=== PATIENT | male | born 1970 | race Two or more races ===

== ENCOUNTER 2017-12-03 10:26 | Inpatient (IN) | payer MEDICAID, MEDICARE ==
[~2017-12-03] VITALS: Ht 167.6 cm; Wt 89.0 kg
[2017-12-03 11:00] LABS: Basophils # (auto) 0 uL; Basophils % (auto) 0.3 % (0.0-2.0); Eosinophils # (auto) 0.1 uL; Eosinophils % (auto) 0.7 % (0.0-7.0); Hemoglobin 15.9 g/dL (13.5-17.5); Lymphocytes # (auto) 1.2 uL; Lymphocytes % (auto) 13.2 % (10.0-50.0); Mean Corpuscular Hemoglobin 32.4 pg (28.0-32.0); Mean Corpuscular Hgb Conc. 34.6 g/dL (32.0-36.0); Mean Corpuscular Volume 93.5 fL (80.0-100.0); Monocytes # (auto) 0.4 uL; Monocytes % (auto) 4.4 % (0.0-12.0); Neutrophils # (auto) 7.7 uL; Neutrophils % (auto) 81.4 % (37.0-80.0); Nucleated Red Blood Cells % 0.1 %; Platelet Count (auto) 246 10^3/uL (140-450); Red Blood Cells 4.92 10^6/uL (4.5-5.90); Red Cell Distribution Width 12.8 % (11.8-14.3); White Blood Cell 9.4 10^3/uL (4.4-10.8)
[2017-12-03] MEDS ORDERED: ASPirin 81 mg TAB PO ONE (11:30)
[2017-12-03] MEDS ORDERED: NITROGLYCERIN 0.4 MG SL TAB SL ONE (11:30)
[2017-12-03 11:34] LABS: Alanine Aminotransferase 356 U/L (16-61); Albumin 4.2 g/dL (3.4-5.0); Alkaline Phosphatase 81 U/L (45-117); Anion Gap 10 (5-15); Aspartate Aminotransferase 370 U/L (15-37); BUN/Creatinine Ratio 17.9; Bilirubin, Total 3.3 mg/dL (0.2-1.0); Blood Urea Nitrogen 17 mg/dL (7-18); Carbon Dioxide 23 mmol/L (21-32); Chloride 102 mmol/L (98-107); GFR African American 110 mL/min; GFR Non-African American 91 mL/min; Glucose 211 mg/dL (74-106); Potassium 4.4 mmol/L (3.5-5.1); Sodium 135 mmol/L (136-145); Total Protein 7.7 g/dL (6.4-8.2)
[2017-12-03] MEDS ORDERED: LIDOCAINE 2% (LOCAL ANESTH.) PF 5ml SDV ONE (11:37)
[2017-12-03] MEDS ORDERED: IOHEXOL 350 MG/ML 100ML IJ ONE (11:38)
[2017-12-03] MEDS ORDERED: ANGIOMAX 250 MG VIAL IV ONE (11:41)
[2017-12-03] MEDS ORDERED: SODIUM CHL 0.9% 0 ML ONE (11:42)
[2017-12-03] MEDS ORDERED: MIDAZOLAM HCL 1MG/1ML-2 ML VIAL ONE (11:42)
[2017-12-03] MEDS ORDERED: fentaNYL CITRATE 100 MCG/2 ML VL ONE (11:42)
[2017-12-03] MEDS ORDERED: ATROPINE SULF 1 MG/10ml SYR ONE (11:42)
[2017-12-03] MEDS ORDERED: EPINEPHrine HCL 1 MG/10 ML SYRG ONE (11:43)
[2017-12-03] MEDS ORDERED: HEPARIN 1,000 UNITS/ml 1ML VIAL IV ONE (11:45)
[2017-12-03] MEDS ORDERED: methylPREDNISolone SOD SUCC 125 MG/2 ML VL ONE (11:55)
[2017-12-03] MEDS ORDERED: diphenhdrAMINE HCL 50 MG/1 ML VL ONE (11:55)
[2017-12-03] MEDS ORDERED: ONDANSETRON HCL 4 MG/2 ML VIAL IV ONE (12:00)
[2017-12-03] MEDS ORDERED: FAMOTIDINE (10MG/ML) 2ML VL IV ONE (12:00)
[2017-12-03] MEDS ORDERED: ACETAMINOPHEN 500 MG TAB PO PRN (13:15)
[2017-12-03] MEDS ORDERED: MORPHINE SULF INJ 2 MG/ML SYRINGE 1ML IV PRN (13:15)
[2017-12-03] MEDS ORDERED: NITROGLYCERIN 0.4 MG SL TAB SL PRN (13:15)
[2017-12-03] MEDS ORDERED: ONDANSETRON HCL 4 MG/2 ML VIAL IV PRN (13:15)
[2017-12-03] MEDS ORDERED: DEXTROSE (50%) 50ML SYRG IV PRN (13:15)
[2017-12-03] MEDS ORDERED: OPTISON 3ml Vial for INJ IV ONE ×2 (13:23→13:45)
[2017-12-03 13:29] LABS: Urine Bacteria NONE SEEN /hpf (None Seen); Urine Blood Negative /uL (Negative); Urine Mucus FEW (None Seen); Urine Specific Gravity 1.024 (1.001-1.035); Urine WBC 1 /hpf (0 - 3)
[2017-12-03 13:52] LABS: Alcohol, Urine < 3.0 mg/dL (0-5); Amphetamine Screen, Urine NEGATIVE (NEGATIVE); Barbiturate Scree,Urine NEGATIVE (NEGATIVE); Benzodiazephine Screen, Urine NEGATIVE (NEGATIVE); Cannabinoid Screen, Urine NEGATIVE (NEGATIVE); Cocaine Screen, Urine NEGATIVE (NEGATIVE); Opiate Scree,Urine NEGATIVE (NEGATIVE); Phencyclidine Screen, Urine NEGATIVE (NEGATIVE)
[2017-12-03 16:24] LABS: Acetaminophen < 2.0 ug/mL (10-30)
[2017-12-03 16:58] LABS: Salicylate < 0.2 mg/dL (2.8-20.0)
[2017-12-03] MEDS: InsuLIN REG 1unit/0.01ml Soln (100units/ml) SC SCH ×2 (17:00→22:20)
[2017-12-03 17:21] LABS: Hepatitis A Ab IgM Negative; Hepatitis B Core IgM Negative
[2017-12-03 17:22] LABS: Hepatitis B Surface Antigen Negative (Negative); Hepatitis C Antibody Negative (Negative)
[2017-12-03 17:31] VITALS: BP 132/76
[2017-12-03] MEDS: ACCU-CHEK COMFORT CURVE STRIP VI SCH ×2 (18:12→22:20)
[2017-12-03] MEDS ORDERED: ALLO300T2 PO (18:46)
[2017-12-03] MEDS ORDERED: METF-370 PO (18:50)
[2017-12-03] MEDS ORDERED: LISI40TA PO (18:50)
[2017-12-03] MEDS ORDERED: ATOR20TA50 PO (18:50)
[2017-12-03] MEDS ORDERED: HYDR-531 PO (18:52)
[2017-12-03 22:00] VITALS: BP 121/73
[2017-12-04 05:00] VITALS: BP 133/66
[2017-12-04] MEDS: ACCU-CHEK COMFORT CURVE STRIP VI SCH ×4 (06:44→21:48)
[2017-12-04] MEDS: InsuLIN REG 1unit/0.01ml Soln (100units/ml) SC SCH ×4 (06:44→21:48)
[2017-12-04 07:53] LABS: Albumin 3.8 g/dL (3.4-5.0); BUN/Creatinine Ratio 20.4; Bilirubin, Total 2.1 mg/dL (0.2-1.0); Calcium 8.8 mg/dL (8.5-10.1); Potassium 3.7 mmol/L (3.5-5.1); Total Protein 7.3 g/dL (6.4-8.2)
[2017-12-04 09:00] VITALS: BP 151/83
[2017-12-04] MEDS: HYDROcodone-ACET 5/325MG TAB PO PRN ×2 (12:52→21:46)
[2017-12-04 13:00] VITALS: BP 112/69
[2017-12-04 17:00] VITALS: BP 127/80
[2017-12-04 22:00] VITALS: BP 135/84
[2017-12-05 05:00] VITALS: BP 130/73
[2017-12-05] MEDS: InsuLIN REG 1unit/0.01ml Soln (100units/ml) SC SCH ×2 (06:16→11:34)
[2017-12-05] MEDS: ACCU-CHEK COMFORT CURVE STRIP VI SCH ×2 (06:17→11:34)
[2017-12-05 07:04] LABS: Albumin 3.7 g/dL (3.4-5.0); Bilirubin, Direct 0.2 mg/dL (0-0.2); Bilirubin, Total 0.9 mg/dL (0.2-1.0)
[2017-12-05 09:00] VITALS: BP 127/78
[2017-12-05 13:00] VITALS: BP 133/89
== END 2017-12-05 16:16 | disposition home or self-care (01) | DRG 190 ==
LOC: ER 10:26 → CATH 1 11:37 → TELE-WESTW 11:38
PROVIDERS: ADMIT Internal Medicine; ATTEND Internal Medicine
PROC: 4A023N7 Measurement of Cardiac Sampling and Pressure, Left Heart, Percutaneous Approach (ICD-10-PCS; principal; 2017-12-03)
PROC: B3101ZZ Fluoroscopy of Thoracic Aorta using Low Osmolar Contrast (ICD-10-PCS; 2017-12-03)
PROC: B2111ZZ Fluoroscopy of Multiple Coronary Arteries using Low Osmolar Contrast (ICD-10-PCS; 2017-12-03)
PROC: B41F1ZZ Fluoroscopy of Right Lower Extremity Arteries using Low Osmolar Contrast (ICD-10-PCS; 2017-12-03)
DX: I21.4 Non-ST elevation (NSTEMI) myocardial infarction (principal); K72.00 Acute and subacute hepatic failure without coma; I11.9 Hypertensive heart disease without heart failure; E66.9 Obesity, unspecified; E78.00 Pure hypercholesterolemia, unspecified; I25.10 Atherosclerotic heart disease of native coronary artery without angina pectoris; I95.81 Postprocedural hypotension; Z68.31 Body mass index [BMI] 31.0-31.9, adult; Z91.041 Radiographic dye allergy status; Z83.3 Family history of diabetes mellitus; E11.65 Type 2 diabetes mellitus with hyperglycemia
CPT/HCPCS: 36415; 71045; 76705; 80053; 80061; 80074; 80076; 80307; 80329; 81001; 82962; 83036; 84484; 85025; 86850; 86900; 86901; 93005; 93306; 93458; 99152; 99291; A6257; C1887; J1815; J2001; J2250; Q9956